=== PATIENT | male | born 1995 | race Caucasian/White ===

== ENCOUNTER 2020-08-15 14:37 | Emergency (ER) | payer SELFPAY ==
[~2020-08-15] VITALS: Ht 190.5 cm; Wt 72.7 kg
--- NOTE | 2020-08-15 15:16 | PHYS DOC ---
Past History Past Medical History: Depression (JERSEY VAIL APRN) Past Surgical History: Other Additional Past Surgical Histo: "MRSA removed from right knee" (JERSEY VAIL APRN) Alcohol Use: None (JRESEY VAIL APRN) Adult General Chief Complaint Chief Complaint: SKIN PROBLEM HPI HPI Patient is a 25-year-old male presents to the emergency department chief complaint of scabies infection on his scalp for the past 2 weeks. Patient states he recently seen his primary care physician Dr. Merino who is a nurse practitioner started him on ivermectin 4 days ago. Patient states he still has several days left of therapy. Patient reports he believes he contacted the scabies from wearing a new virtual reality headset prior to cleaning. Patient reports his main concern is to have a second evaluation of his scalp infestation, requesting if CAT scan imaging would help. Patient denies any itching at this time since starting ivermectin medication regimen, reports he has since shaved his head to remove hair as he felt the mites were living and crawling in his hair. Patient states it is somewhat painful since shaving his head however feels he may have irritated his skin by doing so patient reports his skin pain on his scalp a 7/10 on a 1-10 pain scale. Patient reports a past medical history of anxiety and depression in which he takes Lexapro, Wellbutrin, gabapentin, and hydroxyzine. Patient denies any other physical complaints or physical concerns. Patient states his last tetanus immunization was longer than 5 years ago. (JERSEY VAIL APRN) Review of Systems Review of Systems 14 body systems of review of systems have been reviewed. See HPI for pertinent positives and negative responses, otherwise all other systems are negative, nonpertinent or noncontributory. (JERSEY VAIL APRN) Allergies Allergies Allergies Coded Allergies Type Severity Reaction Last Updated Verified doxycycline Allergy Unknown 08/15/20 Yes (JERSEY VAIL APRN) Physical Exam Physical Exam Constitutional: Well developed, well nourished, no acute distress, non-toxic appearance. Patient anxious during physical examination. HENT: Normocephalic, atraumatic, bilateral external ears normal, oropharynx m oist, no oral exudates, nose normal. No lymphadenopathy appreciated of the head or neck, see skin assessment for scalp of skin primary assessment. Eyes: PERRLA, EOMI, conjunctiva normal, no discharge. Neck: Normal range of motion. Cardiovascular: Distal cap refill less than 2 seconds Lungs & Thorax: Patient is in no respiratory distress, no audible adventitious lung sounds appreciated. Abdomen: Bowel sounds normal, soft, no tenderness, no masses, no pulsatile masses. Skin: Warm, dry, no erythema, no rash. Except for scalp, patient has Multiple small 1 to 2 mm erythematous papules without excoriated, thin caldera/red/brown james lines between 2-15 mm long, slightly raised, no black dots or mites appreciated, no other infestations noted on other skin surfaces, patient was wearing a stocking cap upon arrival to the emergency department. Patient's hair was shaved from his head. No purulence or abscess is appreciated of the skin of the scalp. Extremities: No tenderness, no cyanosis, no clubbing, ROM intact, no edema. Neurologic: Alert and oriented X 3, normal motor function, normal sensory f unction, no focal deficits noted. Psychologic: Affect normal, judgement normal, mood normal. Patient anxious during assessment. Denies homicidal or suicidal ideation. (JERSEY VAIL APRN) Current Patient Data Vital Signs Vital Signs Date Time Temp Pulse Resp B/P (MAP) Pulse Ox O2 Delivery O2 Flow Rate FiO2 08/15/20 14:56 95.7 110 18 144/94 (111) 98 Room Air (JERSEY VAIL APRN) EKG EKG [] (JERSEY VAIL APRN) Radiology/Procedures Radiology/Procedures [] (JERSEY VAIL APRN) Heart Score C/O Chest Pain: No Risk Factors: Risk Factors: DM, Current or recent (<one month) smoker, HTN, HLP, family history of CAD, obesity. Risk Scores: Risk Factors: DM, Current or recent (<one month) smoker, HTN, HLP, family history of CAD, obesity. (JERSEY VAIL APRN) Course & Med Decision Making Course & Med Decision Making Pertinent Labs and Imaging studies reviewed. (See chart for details) 25-year-old male, vital signs reviewed, resents emergency department for second evaluation of scabies infection of the scalp. Patient is currently being treated with ivermectin, on day 4 of 2-week regimen started by his primary care physician. Patient states he has already used the shampoo, patient has since shaved the hair from his scalp. Physical examination is consistent with scabies infestation. The patient's tetanus immunization was greater than 5 years ago, will bring up-to-date today in the emergency department, will give steroid injection for patient's ongoing skin symptoms. Will recommend continuation of ivermectin regimen, strict follow-up with primary care tomorrow for reevaluation of ivermectin therapy. Patient gave verbal understanding of discharge home instructions, strict follow- up with PCP tomorrow, return to ER precautions or concerns, patient had no further questions or concerns and was discharged home. Differential Diagnosis Insect bites Fleas Bedbugs Ants Atopic or contact dermatitis Tinea (JERSEY VAIL APRN) Dragon Disclaimer Dragon Disclaimer This electronic medical record was generated, in whole or in part, using a voice recognition dictation system. (JERSEY VAIL APRN) Attending Co-Sign The patient was seen and interviewed as well as examined at the bedside. The chart was reviewed. The case was discussed. Agree with the plan of care. (EMELIA NAJERA DO) Departure Departure: Impression: Primary Impression: Scabies infestation Additional Impression: Need for DTaP vaccination Disposition: 01 HOME / SELF CARE / HOMELESS Condition: GOOD Referrals: MEÑO PHILLIPS MD (PCP) Patient Instructions: Scabies Additional Instructions: You are seen today in the emergency department for a evaluation of your scabies for station of your scalp. I have attached information related to scabies to this document please review. Please wash all linens and items that contact your scalp and skin as we discussed. Please continue your ivermectin regimen dosing started by your primary care provider. You were given a tetanus immunization today in the emergency department called DTaP/Adacel. As we discussed, please follow-up with your primary care provider tomorrow for repeat examination of your scalp infestation to evaluate if further medications and dosing are required. Please return to the emergency department for worsening symptoms or other concerns. EMERGENCY DEPARTMENT GENERAL DISCHARGE INSTRUCTIONS Thank you for coming to [facility] (ED) today and trusting us with you care. We trust that you had a positivie experience in our Emergency Department. If you wish to speak to the department management, you may call the director at [phone]. YOUR FOLLOW UP INSTRUCTIONS ARE FOLLOWS: 1. Do you have a private Doctor? If you do not have a private doctor, please ask for a resource list of physicians or clinics that may be able to assist you with follo w up care. 2. The Emergency Physician has interpreted your x-rays. The X-Ray specialist will also review them. If there is a change in the findings, you will be notified in 48 hours when at all possible. 3. A lab test or culture has been done, your results will be reviewed and you will be notified if you need a change in treatment. ADDITIONAL INSTRUCTIONS AND INFORMATION: 1. Your care today has been supervised by a physician who is specially trained in emergency care. Many problems require more than one evaluation for a complete diagnosis and treatment. We recommend that you schedule your follow up appointment as rec ommended to ensure complete treatment of you illness or injury. If you are unable to obtain follow up care and continue to have a problem, or if your condition worsens, we recommend that you return to the ED. 2. We are not able to safely determine your condition over the phone nor are we able to give sound medical advice over the phone. For these safety reasons, if you call for medical advice we will ask you to come to the ED for further evaluation. 3. If you have any questions regarding these discharge instructions please call the ED at [phone]. SAFETY INFORMATION: In the interest of safety, wellness, and injury prevention; we encourage you to wear your sealbelt, if you smoke; quite smoking, and we encourage family to use a protective helmet for bicycling and other sporting events that present an increased risk for head injury. IF YOUR SYMPTOMS WORSEN OR NEW SYMPTOMS DEVELOP, OR YOU HAVE CONCERNS ABOUT YOUR CONDITION; OR IF YOUR CONDITION WORSENS WHILE YOU ARE WAITING FOR YOUR FOLLOW UP APPOINTMENT; EITHER CONTACT YOUR PRIMARY CARE DOCTOR, THE PHYSICIAN WHOSE NAME AND NUMBER YOU WERE GIVEN, OR RETURN TO THE ED IMMEDIATELY. Problem Qualifiers JERSEY VAIL APRN August 15, 2020 15:16 EMELIA NAJERA DO August 18, 2020 06:57
[2020-08-15] MEDS ORDERED: DIPH,PERTUSS(ACELL),TET VAC/PF 0.5 ML SYRINGE. VAX IM ONE (15:30)
[2020-08-15] MEDS ORDERED: methylPREDNISolone ACETATE 80 MG/ML VIAL. IM ONE (15:30)
[2020-08-15 15:40] VITALS: BP 129/86
== END 2020-08-15 15:42 | disposition home or self-care (01) ==
LOC: ER 14:37
DX: B86 Scabies (principal); F41.9 Anxiety disorder, unspecified; F32.9 Major depressive disorder, single episode, unspecified; Z88.1 Allergy status to other antibiotic agents
CPT/HCPCS: 90471; 90715; 96372; 99284; J1040

== ENCOUNTER 2020-08-19 00:56 | Emergency (ER) | payer SELFPAY ==
[~2020-08-19] VITALS: Ht 190.5 cm; Wt 75.0 kg
--- NOTE | 2020-08-19 00:59 | PHYS DOC ---
Past History Past Medical History: Depression Past Surgical History: Other Additional Past Surgical Histo: "MRSA removed from right knee" Alcohol Use: None Adult General HPI HPI Patient is a 25-year-old male who presents to the emergency department with a chief complaint of concern for scabies. States he was in the emergency department 4 days ago and was diagnosed with scabies and used the shampoo once but does not think it is working. States he lives in his house with his parents and thinks he sees bugs all over the house and feels them crawling on him. States nobody in the house has any symptoms like he does. States he went saw his primary care physician and was started on oral ivermectin which he does not think is working. Denies any recent travel, illnesses, fevers, chest pain, shortness of breath, abdominal pain, nausea, vomiting. Denies any alcohol or drug use. Review of Systems Review of Systems Review of systems otherwise unremarkable except noted in HPI Allergies Allergies Allergies Coded Allergies Type Severity Reaction Last Updated Verified doxycycline Allergy Unknown 08/15/20 Yes Physical Exam Physical Exam Constitutional: Well developed, well nourished, no acute distress, non-toxic appearance. [] HENT: Normocephalic, atraumatic, bilateral external ears normal, oropharynx moist, no oral exudates, nose normal. [] Eyes: conjunctiva normal, no discharge. [] Cardiovascular:Heart rate regular rhythm, no murmur [] Lungs & Thorax: No respiratory distress Skin: Warm, dry, no erythema, no rash. [] Neurologic: Alert and oriented X 3, no focal deficits noted. [] Psychologic: Affect normal, judgement normal, mood normal. [] EKG EKG [] Radiology/Procedures Radiology/Procedures [] Heart Score C/O Chest Pain: No Risk Factors: Risk Factors: DM, Current or recent (<one month) smoker, HTN, HLP, family history of CAD, obesity. Risk Scores: Risk Factors: DM, Current or recent (<one month) smoker, HTN, HLP, family history of CAD, obesity. Course & Med Decision Making Course & Med Decision Making Patient is a 25-year-old male who presents to the emergency department with pruritus concern for scabies Vital signs not concerning. Physical exam noted above. Patient with no sign of scabies, or lice or any other parasite on skin. Patient skin is dry and has areas of excoriation where he has been scratching but no signs of parasites. Patient requested steroid shot as he stated he had 1 before that seem to help. Given shot of dexamethasone. Discussed all findings with patient and went over differential diagnosis and multiple pictures of different parasites. Advised to continue the treatments that his primary care physician gave him and follow-up tomorrow with them. Gave strict return precautions to the ED. [] Dragon Disclaimer Dragon Disclaimer This electronic medical record was generated, in whole or in part, using a voice recognition dictation system. Departure Departure: Impression: Primary Impression: Skin problem Disposition: HOME / SELF CARE / HOMELESS Condition: GOOD Referrals: NICOLA COOPER MD (PCP) Patient Instructions: Contact Dermatitis, [id number], Lice, Head and Pubic, S cabies Additional Instructions: Please read all the attached information very carefully as you were inquiring about these here in the emergency department. Please continue the treatments that you are primary care physicians started for you and call them first thing in the morning to update them on your ED visit and treatment course. Please set up an appointment as soon as possible with them for reevaluation. Please come back to the emergency department with new or concerning symptoms as discussed. LIDIA DENNIS MD August 19, 2020 00:59
[2020-08-19 01:28] VITALS: BP 128/72
[2020-08-19] MEDS ORDERED: DEXAMETHASONE 4 MG TABLET PO ONE (01:30)
== END 2020-08-19 01:31 | disposition home or self-care (01) ==
LOC: ER 00:56
DX: B86 Scabies (principal); F32.9 Major depressive disorder, single episode, unspecified
CPT/HCPCS: 99283; J8540